=== PATIENT | female | born 1985 | race Caucasian/White ===

== ENCOUNTER 2018-05-28 11:59 | Emergency (ER) | payer OTHER ==
[2018-05-28 12:42] VITALS: BP 112/88
--- NOTE | 2018-05-28 13:16 | UC ---
Abdominal Pain Female HPI - HPI Summary HPI Summary: left side flank pain x 1 week pain is 6 out of 10 , no radiation pain is sharp , intermittent better with rest, no n/v/d/c , no dysuria, no urinary frequency - History of Current Complaint Chief Complaint: UCGU Stated Complaint: LEFT SIDE PAIN (POSS URINARY) Time Seen by Provider: 05/28/18 12:44 Hx Obtained From: Patient Hx Last Menstrual Period: "maybe the first" ?: No Onset/Duration: Gradual Onset, Lasting Weeks - 1, Still Present Timing: Constant Severity Initially: Moderate Severity Currently: Moderate Pain Intensity: 4 Location: Other - left flank pain Radiates: No Character: Burning Aggravating Factor(s): Movement Alleviating Factor(s): Nothing Associated Signs and Symptoms: Negative: Diaphoresis, Fever, Cough, Chest Pain, Dizzy, Back Pain, Constipation, Blood in Stool, Urinary Symptoms, Decreased Appetite, Vaginal Bleeding, Vaginal Discharge, Nausea, Vomiting, Diarrhea Allergies/Adverse Reactions: Allergies Allergy/AdvReac Type Severity Reaction Status Date / Time amoxicillin Allergy Hives Verified 05/28/18 12:35 Home Medications: Home Medications Levothyroxine TAB* [Synthroid 125 MCG TAB*] 1 tab DAILY 05/28/18 [History Confirmed 05/28/18] PMH/Surg Hx/FS Hx/Imm Hx Endocrine History: Thyroid Disease - Surgical History Surgical History: Yes Surgery Procedure, Year, and Place: x1. thyroidectomy - Family History Known Family History: Negative: Diabetes - Social History Alcohol Use: Occasionally Substance Use Type: None Smoking Status (MU): Never Smoked Tobacco Review of Systems All Other Systems Reviewed And Are Negative: Yes Constitutional: Positive: Negative Skin: Positive: Negative Eyes: Positive: Negative ENT: Positive: Negative Respiratory: Positive: Negative Gastrointestinal: Positive: Abdominal Pain Genitourinary: Positive: Negative. Negative: Dysuria, Hematuria, Frequency, Urgency Is Patient Immunocompromised?: No Physical Exam Triage Information Reviewed: Yes Appearance: Well-Appearing, No Pain Distress, Well-Nourished Vital Signs: Initial Vital Signs Temp 98.4 F 05/28/18 12:36 Pulse 84 05/28/18 12:36 Resp 16 05/28/18 12:36 BP 112/88 05/28/18 12:36 Pulse Ox 100 05/28/18 12:36 Vital Signs Reviewed: Yes Eye Exam: Normal Eyes: Positive: Conjunctiva Clear ENT: Positive: Normal ENT inspection, Hearing grossly normal, Pharynx normal Neck: Positive: Supple, Nontender, No Lymphadenopathy Respiratory: Positive: Chest non-tender, Lungs clear, Normal breath sounds Cardiovascular: Positive: RRR, No Murmur, Pulses Normal Abdominal Exam: Normal Abdomen Description: Positive: Nontender, Soft. Negative: CVA Tenderness (R), CVA Tenderness (L), Distended, Guarding Bowel Sounds: Positive: Present Skin Exam: Normal Abd Pain Female Course/Dx - Differential Dx/Diagnosis Provider Diagnosis: Left flank pain Discharge - Sign-Out/Discharge Documenting (check all that apply): Patient Departure All imaging exams completed and their final reports reviewed: No Studies - Discharge Plan Condition: Critical Disposition: HOME Patient Education Materials: Flank Pain (ED) Referrals: Mariella Jimenez [Primary Care Provider] - 7 Days - Billing Disposition and Condition Condition: CRITICAL Disposition: Home
== END 2018-05-28 13:14 | disposition home or self-care (01) ==
LOC: UCCORT 11:59
DX: R10.9 Unspecified abdominal pain (principal); E07.9 Disorder of thyroid, unspecified; Z88.0 Allergy status to penicillin; Z79.899 Other long term (current) drug therapy
CPT/HCPCS: 81003; 84702; 99211; G0463

== ENCOUNTER 2019-07-20 16:38 | Emergency (ER) | payer SELFPAY ==
[2019-07-20 17:11] VITALS: BP 114/63
--- NOTE | 2019-07-20 17:53 | UC ---
Laceration HPI - HPI Summary HPI Summary: Pt presents with c/o to distal left index finger lateral aspect at base of nail bed. Pt was using a cutter to cut cloth and is up to date with tetanus. - History Of Current Complaint Chief Complaint: UCLaceration Stated Complaint: LEFT POINTER LACERATION Time Seen by Provider: 07/20/19 17:07 Hx Obtained From: Patient Hx Last Menstrual Period: 07/06/19 Laceration Location: Finger - left index Mechanism Of Injury: Sharp Trauma Onset/Duration: Sudden Onset Severity: Moderate Pain Intensity: 9 Pain Scale Used: 0-10 Numeric Aggravating Factors: Movement Related History: Dominant Hand Right - Allergies/Home Medications Allergies/Adverse Reactions: Allergies Allergy/AdvReac Type Severity Reaction Status Date / Time amoxicillin Allergy Hives Verified 07/20/19 17:11 Home Medications: Home Medications Levothyroxine TAB* [Synthroid 125 MCG TAB*] 1 tab DAILY 05/28/18 [History Confirmed 07/20/19] FLUoxetine CAP* [PROzac CAP*] 60 mg PO DAILY 07/20/19 [History Confirmed ] PMH/Surg Hx/FS Hx/Imm Hx Previously Healthy: Yes - Surgical History Surgical History: Yes Surgery Procedure, Year, and Place: x2. thyroidectomy - Family History Known Family History: Negative: Diabetes - Social History Occupation: Employed Full-time Lives: With Family Alcohol Use: Rare Substance Use Type: None Smoking Status (MU): Never Smoked Tobacco Have You Smoked in the Last Year: No - Immunization History Most Recent Tetanus Shot: 2012 Vaccination Up to Date: Yes Review of Systems All Other Systems Reviewed And Are Negative: Yes Constitutional: Positive: Negative Skin: Positive: Other - laceration left index finger Eyes: Positive: Negative ENT: Positive: Negative Respiratory: Positive: Negative Cardiovascular: Positive: Negative Gastrointestinal: Positive: Negative Genitourinary: Positive: Negative Motor: Positive: Negative Neurovascular: Positive: Negative Musculoskeletal: Positive: Myalgia - at laceration site Neurological/Mental Status: Positive: Negative Psychological: Positive: Negative Is Patient Immunocompromised?: No Physical Exam Triage Information Reviewed: Yes Appearance: Well-Appearing Vital Signs: Initial Vital Signs Temp 98.8 F 07/20/19 17:08 Pulse 84 07/20/19 17:08 Resp 18 07/20/19 17:08 BP 114/63 07/20/19 17:08 Pulse Ox 97 04/19/20 17:08 Vital Signs Reviewed: Yes Eye Exam: Normal ENT: Positive: Hearing grossly normal Dental Exam: Normal Neck exam: Normal Respiratory Exam: Normal Respiratory: Positive: No respiratory distress Musculoskeletal Exam: Normal Musculoskeletal: Positive: Strength Intact, ROM Intact Neurological Exam: Normal Psychological Exam: Normal Skin Exam: Other - laceration left index Laceration Repair - Laceration Repair 1 Description: Linear Laceration Size After Repair: Length (cm) - 1.5, Width (mm) - 3, Depth (mm) - 3 Modified For Repair: No Cleansing Completed Via Routine Prep: Yes Irrigation With Pressure Irrigation Device: Yes Closure Material: Skin Adhesive, SteriStrips Closure Method: Single Layer Suture Of: Skin Laceration Course/Dx - Differential Dx - Laceration/Wound Differental Diagnoses: Laceration, Tendon Laceration - Diagnosis Provider Diagnosis: Laceration of left index finger w/o foreign body w/o damage to nail Discharge ED - Sign-Out/Discharge Documenting (check all that apply): Patient Departure All imaging exams completed and their final reports reviewed: No Studies - Discharge Plan Condition: Stable Disposition: HOME Patient Education Materials: Finger Laceration (ED), Skin Adhesive Care (ED), Steristrips (ED) Referrals: Mariella Jimenez [Primary Care Provider] - If Needed Additional Instructions: Please keep your finger splint on for at least 5 days. Do not get the laceration wet for at least 4 days. If the dressing gets soiled please change immediately. Do not apply antibiotic ointment to the wound. Please do not peel of the steri strips. They will fall off on their own. - Billing Disposition and Condition Condition: STABLE Disposition: Home
== END 2019-07-20 17:46 | disposition home or self-care (01) ==
LOC: UCCORT 16:38
DX: S61.211A Laceration without foreign body of left index finger without damage to nail, initial encounter (principal); W27.8XXA Contact with other nonpowered hand tool, initial encounter; Y92.9 Unspecified place or not applicable; Z88.0 Allergy status to penicillin
CPT/HCPCS: 12001; 99211; G0463